=== PATIENT | female | born 1985 | race Two or more races ===

== ENCOUNTER 2018-06-18 16:20 | Observation (INO) | payer MEDICAID, OTHER ==
[2018-06-18] MEDS ORDERED: CHLO25TA34 PO (18:22)
[2018-06-18] MEDS ORDERED: INSRTEST IV (18:22)
[2018-06-18] MEDS ORDERED: PREN-96 PO (18:22)
[2018-06-18] MEDS ORDERED: CITA-244 PO (18:22)
[2018-06-18] MEDS ORDERED: INSLISPI SC (18:22)
[2018-06-18] MEDS ORDERED: FOLI1TAB6 PO (18:22)
[2018-06-18 19:02] LABS: Urine Bacteria FEW /hpf (None Seen); Urine Blood Negative /uL (Negative); Urine Specific Gravity 1.006 (1.001-1.035); Urine WBC 2 /hpf (0 - 5)
[2018-06-18 19:27] LABS: Alcohol, Urine < 3.0 mg/dL (0-5); Amphetamine Screen, Urine NEGATIVE (NEGATIVE); Barbiturate Scree,Urine NEGATIVE (NEGATIVE); Benzodiazephine Screen, Urine NEGATIVE (NEGATIVE); Cannabinoid Screen, Urine NEGATIVE (NEGATIVE); Cocaine Screen, Urine NEGATIVE (NEGATIVE); Opiate Scree,Urine NEGATIVE (NEGATIVE); Phencyclidine Screen, Urine NEGATIVE (NEGATIVE)
== END 2018-06-18 20:04 | disposition home or self-care (01) | DRG 563 ==
LOC: LDRP 16:20
PROVIDERS: ADMIT Obstetrics & Gynecology; ATTEND Obstetrics & Gynecology
DX: O60.03 Preterm labor without delivery, third trimester (principal); Z3A.34 34 weeks gestation of pregnancy
CPT/HCPCS: 59025; 76805; 80307; 81001; 81002; 82948; 82962; G0378